=== PATIENT | male | born 1955 | race Caucasian/White ===

== ENCOUNTER 2017-11-04 06:06 | Observation (INO) | payer OTHER ==
[2017-11-04 08:08] VITALS: RESP 18
[2017-11-04] MEDS ORDERED: NITROGLYCERIN SL TABS 0.4 MG TAB SUBLINGUAL PRN (08:10)
--- NOTE | 2017-11-04 10:56 | ECHOF ---
Referral Reason:cp MEASUREMENTS -------- HEIGHT: 154.9 cm WEIGHT: 109.3 kg BP: 115/75 RVIDd: 3.3 cm (< 3.3) IVSd: 0.8 cm (0.6 - 1.1) LVIDd: 4.6 cm (3.9 - 5.3) LVPWd: 0.8 cm (0.6 - 1.1) IVSs: 1.2 cm LVIDs: 3.1 cm LVPWs: 1.1 cm LAESV Index (A-L): 17.54 ml/m Ao Diam: 2.8 cm (2.0 - 3.7) LA Diam: 2.9 cm (2.7 - 3.8) EPSS: 0.5 cm MV E Riaz: 0.66 m/s MV DecT: 251 ms MV A Riaz: 0.96 m/s MV E/A Ratio: 0.69 AV maxP.14 mmHg AV meanP.63 mmHg RAP: 5.00 mmHg RVSP: 15.63 mmHg MV EF SLOPE: 99.05 mm/s (70 - 150) MV EXCURSION: 2.10 cm (> 18.000) FINDINGS -------- Sinus rhythm. This was a technically good study. The left ventricular size is normal. Left ventricular wall thickness is normal. Overall left vent ricular systolic function is normal with, an EF between 55 - 60 %. The right ventricle is mildly enlarged. Normal LA size by volume 22+/-6 ml/m2. The right atrial size is normal. There is mild aortic valve sclerosis. Trace to mild aortic regurgitation. There is no evidence of aortic stenosis. The mitral valve leaflets are mildly thickened. Mild mitral regurgitation is present. Trace tricuspid regurgitation present. Right ventricular systolic pressure is normal at < 35 mmHg. The right ventricular systolic pressure, as measured by Doppler, is 15.63mmHg. The pulmonic valve was not well visualized. There is no pulmonic regurgitation present. The aortic root size is normal. Normal inferior vena cava with normal inspiratory collapse consistent with estimated right atrial pre ssure of 5 mmHg. There is no pericardial effusion. CONCLUSIONS -------- 1. Sinus rhythm. 2. This was a technically good study. 3. The left ventricular size is normal. 4. Left ventricular wall thickness is normal. 5. Overall left ventricular systolic function is normal with, an EF between 55 - 60 %. 6. The right ventricle is mildly enlarged. 7. Normal LA size by volume 22+/-6 ml/m2. 8. There is mild aortic valve sclerosis. 9. Trace to mild aortic regurgitation. 10. The mitral valve leaflets are mildly thickened. 11. Mild mitral regurgitation is present. 12. Trace tricuspid regurgitation present. 13. Right ventricular systolic pressure is normal at < 35 mmHg. 14. The pulmonic valve was not well visualized. 15. There is no pulmonic regurgitation present. 16. The aortic root size is normal. 17. There is no pericardial effusion. SKULL GRINDER: Jorge Nagel RDCS
[2017-11-04 11:03] LABS: Cholesterol 161 mg/dL (<200); HDL Cholesterol 39 mg/dL (40-60); LDL Cholesterol,Calculated 110 mg/dL (0-99); Triglycerides 60 mg/dL (<150)
--- NOTE | 2017-11-04 11:21 | P.CRDCN ---
History of Present Illness History of present illness: Mr. Caicedo is a pleasant 62-year-old male with no significant past medical history. He used to smoke, quit in 2003 after smoking for 30 years. He denies history of coronary artery disease, hypertension, dyslipidemia or diabetes mellitus. He states his father at the age of 46 from a heart attack. We have been asked to see him in consultation for chest pain. He states he woke up to use the restroom last night around 0300. He walked to the restroom without issue and urinated. Once getting back into bed he started feeling a heavy pain in the precordial region and became acutely diaphoretic. He denies radiation to the arm, back, neck or jaw. He denies associated shortness of breath, dizziness, palpitations, nausea or vomiting. He states he has never felt a pain like this in the past. The symptoms persisted so he went to [facility] for evaluation. He received nitroglycerin SL there and his pain started to subside. He was transferred here for further evaluation. Since arriving here his pain has completely resolved. EKG obtained initially in [place] revealed sinus mechanism with no acute ST or T-wave abnormalities. Repeat here this morning is the same. Chest xray obtained at [place] read as normal per documentation, no films to review. Laboratory data obtained at [place] reviewed, hemoglobin 13.8, platelets 160 , sodium 140, potassium 3.5, magnesium 1.8, creatinine 1.3, normal BMP and d- dimer 0.57. He takes no daily medications. Review of Systems At the time of my exam: CONSTITUTIONAL: Denies fever. Denies chills. EYES: Denies blurred vision. Denies vision changes. Denies eye pain. EARS, NOSE, MOUTH & THROAT: Denies headache. Denies sore throat. Denies ear pain. CARDIOVASCULAR: Denies chest pain. Denies shortness of breath. Denies orthopnea. Denies PND. Denies palpitations. RESPIRATORY: Denies cough. GASTROINTESTINAL: Denies abdominal pain. Denies diarrhea. Denies constipation. Denies nausea. Denies vomiting. MUSCULOSKELETAL: Denies myalgias. INTEGUMENTARY: Denies pruitis. Denies rash. NEUROLOGIC: Denies numbness. Denies tingling. Denies weakness. PSYCHIATRIC: Denies anxiety. Denies depression. ENDOCRINE: Denies fatigue. Denies weight change. Denies polydipsia. Denies polyurina. GENITOURINARY: Denies burning, hematuria or urgency with micturation. HEMATOLOGIC: Denies history of anemia. Denies bleeding. Past Medical History - Past Family History Father Family Medical History: Myocardial Infarction ([place]) Additional Family Medical History / Comment(s): Father at the age of 46yrs from a [facility] Mother Additional Family Medical History / Comment(s): Pt states his mother went into the hospital because she was having problems with her legs and . She was 83 yrs old. Medications and Allergies Home Medications Medication Instructions Recorded Confirmed Type Aspirin EC [Ecotrin Low Dose] 81 mg PO HS 11/04/17 11/04/17 History Calcium Carbonate [Calcium] 600 mg PO HS 11/04/17 11/04/17 History Multivitamins, Thera [Multivitamin 1 tab PO HS 11/04/17 11/04/17 History (formulary)] Allergies Allergy/AdvReac Type Severity Reaction Status Date / Time No Known Allergies Allergy Verified 11/04/17 09:04 Physical Exam Vitals: Vital Signs Temp Pulse Resp BP Pulse Ox 11/04/17 08:06 97.4 F L 80 18 115/75 100 Intake and Output 11/03/17 11/04/17 11/04/17 22:59 06:59 14:59 Other: Weight 109.4 kg Blood pressure 115/75 heart rate 88 afebrile maintaining oxygen saturation on nasal cannula GENERAL: This is a 62-year-old male in no apparent distress at the time of my examination. Obese. HEENT: Head is atraumatic, normocephalic. Pupils are equal, round. Sclerae anicteric. Conjunctivae are clear. Mucous membranes of the mouth are moist. Neck is supple. There is no jugular venous distention. No carotid bruit is heard. LUNGS: Clear to auscultation no wheezes, rales or rhonchi. No chest wall tenderness is noted on palpation or with deep breathing. HEART: Regular rate and rhythm without murmurs, rubs or gallops. S1 and S2 heard. ABDOMEN: Soft, nontender. Bowel sounds are heard. No organomegaly noted. EXTREMITIES: No evidence of peripheral edema and no calf tenderness noted. VASCULAR: Radial and dorsalis pedis pulses palpated, no evidence of clubbing. NEUROLOGIC: Patient is awake, alert and oriented x3. Results Intake and Output 11/03/17 11/04/17 11/04/17 22:59 06:59 14:59 Other: Weight 109.4 kg Patient Weight 11/05/17 06:59 Weight 109.4 kg Assessment and Plan Assessment: ASSESSMENT Chest pain, atypical. Resolved. Former nicotine dependence Family history of premature from cardiac causes PLAN Obtain 2D echocardiogram and doppler study to assess cardiac structure and function. Obtain second set of cardiac enzymes, if normal we can proceed with stress echocardiogram to assess for stress induced cardiac ischemia. Check lipid panel. Recommend lifestyle modifications for weight loss and increase exercise. Symptoms are very atypical, if stress test is normal he is stable from a cardiac perspective. Thank you kindly for this consultation. Nurse Practitioner note has been reviewed, I agree with a documented findings and plan of care. Patient was seen and examined.
[2017-11-04 12:19] VITALS: BP 127/81; PULSE 89; TEMP 97.6
--- NOTE | 2017-11-04 13:33 | P.HPIM ---
History of Present Illness 62-year-old pleasant man came in with complaints of chest pain was seen in [facility] was subsequently transferred here had an episode of chest pain which lasted for a few minutes and the left side of the chest sharp in nature nonradiating lasted for about an hour and and no associated diaphoresis or shortness of breath lightheadedness chest pain is nonpleuritic in nature. Resolved with sublingual nitroglycerin. Patient's EKG did not show any acute ST -T wave changes troponins are negative chest x-ray was essentially within normal limits and the creatinine is bit elevated beyond that there was no significant abnormality patient doesn't take any medications at home used to smoke in the past quit smoking. Patient is undergoing stress test if it's negative patient will be discharged today. Review of Systems REVIEW OF SYSTEMS: CONSTITUTIONAL: No fever, no malaise, no fatigue. HEENT: No recent visual problems or hearing problems. Denied any sore throat. CARDIOVASCULAR: No chest pain, orthopnea, PND, no palpitations, no syncope. PULMONARY: No shortness of breath, no cough, no hemoptysis. GASTROINTESTINAL: No diarrhea, no nausea, no vomiting, no abdominal pain. Normoactive bowel sounds. NEUROLOGICAL: No headaches, no weakness, no numbness. HEMATOLOGICAL: Denies any bleeding or petechiae. GENITOURINARY: Denies any burning micturition, frequency, or urgency. MUSCULOSKELETAL/RHEUMATOLOGICAL: Denies any joint pain, swelling, or any muscle pain. ENDOCRINE: Denies any polyuria or polydipsia. The rest of the 14-point review of systems is negative. Past Medical History Past Medical History: No Reported History History of Any Multi-Drug Resistant Organisms: None Reported Past Surgical History: Orthopedic Surgery Additional Past Surgical History / Comment(s): Bilateral ankle fractures/ dislocations with surgery-pt does not know if any hardware is present, colonoscopy Past Anesthesia/Blood Transfusion Reactions: No Reported Reaction Smoking Status: Former smoker - Past Family History Father Family Medical History: Myocardial Infarction ([place]) Additional Family Medical History / Comment(s): Father at the age of 46yrs from a [place] Mother Additional Family Medical History / Comment(s): Pt states his mother went into the hospital because she was having problems with her legs and . She was 83 yrs old. Medications and Allergies Home Medications Medication Instructions Recorded Confirmed Type Aspirin EC [Ecotrin Low Dose] 81 mg PO HS 11/04/17 11/04/17 History Calcium Carbonate [Calcium] 600 mg PO HS 11/04/17 11/04/17 History Multivitamins, Thera [Multivitamin 1 tab PO HS 11/04/17 11/04/17 History (formulary)] Allergies Allergy/AdvReac Type Severity Reaction Status Date / Time No Known Allergies Allergy Verified 11/04/17 09:04 Physical Exam Vitals: Vital Signs Temp Pulse Resp BP Pulse Ox 11/04/17 11:35 97.6 F 89 18 127/81 96 11/04/17 08:06 97.4 F L 80 18 115/75 100 Intake and Output 11/03/17 11/04/17 11/04/17 22:59 06:59 14:59 Other: Voiding Method Toilet Weight 109.316 kg PHYSICAL EXAMINATION: GENERAL: The patient is alert and oriented x3, not in any acute distress. Well developed, well nourished. HEENT: Pupils are round and equally reacting to light. EOMI. No scleral icterus. No conjunctival pallor. Normocephalic, atraumatic. No pharyngeal erythema. No thyromegaly. CARDIOVASCULAR: S1 and S2 present. No murmurs, rubs, or gallops. PULMONARY: Chest is clear to auscultation, no wheezing or crackles. ABDOMEN: Soft, nontender, nondistended, normoactive bowel sounds. No palpable organomegaly. MUSCULOSKELETAL: No joint swelling or deformity. EXTREMITIES: No cyanosis, clubbing, or pedal edema. NEUROLOGICAL: Gross neurological examination did not reveal any focal deficits. SKIN: No rashes. Results Labs: Abnormal Lab Results - Last 24 Hours (Table) 11/04/17 Range/Units 10:05 LDL Cholesterol, Calc 110 H (0-99) mg/dL HDL Cholesterol 39 L (40-60) mg/dL Thrombosis Risk Factor Assmnt - Choose All That Apply Any of the Below Risk Factors Present?: Yes Each Factor Represents 1 point: Age 41-60 years, Obesity (BMI >25) Other Risk Factors: No Other congenital or acquired thrombophilia - If yes, enter type in comment: No Thrombosis Risk Factor Assessment Total Risk Factor Score: 2 Thrombosis Risk Factor Assessment Level: Low Risk Assessment and Plan Plan: -Chest pain: Rule out acute coronary syndromes patient will undergo stress test if that's negative patient will be discharged. -Nicotine use in the past. -Renal failure: Probably acute patient was asked to drink lots of water and follow-up with primary care physician repeat basic metabolic profile as an outpatient.
--- NOTE | 2017-11-04 13:35 | ECHOS ---
STRESS ECHOCARDIOGRAM DATE OF SERVICE: 11/04/2017 INDICATIONS: Chest pain. MEDICATIONS: BASELINE HEART RATE: 86 BASELINE BLOOD PRESSURE: 105/58 MAXIMUM HEART RATE: 153 MAXIMUM BLOOD PRESSURE: 152/59 85% MPHR: 136 100% MPHR: 160 METS: 8.5 MAXIMUM STAGE REACHED: III TOTAL EXERCISE TIME: 7 minutes CLINICAL INFORMATION: Baseline rhythm sinus mechanism, rate of 86, normal axis and intervals, normal electrocardiogram. Baseline blood pressure 105/58 mmHg. Patient exercised on Bowen protocol for 7 minute reaching peak rate 153 beats per minute which is equal to 96% maximum predicted heart rate. Peak blood pressure 152/59 mmHg. Test was terminated secondary to fatigue. There is no chest pain. Electrocardiograph monitoring revealed no evidence of diagnostic ischemic ST deviation. Baseline echocardiogram revealed normal wall thickening and motion. At peak exercise there was normal wall motion augmentation with no hypokinesis or dyskinesis. CONCLUSION: 1. Average exercise tolerance with normal electrocardiograph response to exercise. 2. Normal stress echocardiogram with no evidence of stress induced ischemia. MMODL / IJN: [id number] /
== END 2017-11-04 16:05 | disposition home or self-care (01) ==
LOC: 3OBS 07:43
PROVIDERS: ADMIT Internal Medicine; ATTEND Internal Medicine
DX: R07.89 Other chest pain (principal); R61 Generalized hyperhidrosis; N19 Unspecified kidney failure; E66.9 Obesity, unspecified; Z68.33 Body mass index [BMI] 33.0-33.9, adult; Z79.82 Long term (current) use of aspirin; Z87.891 Personal history of nicotine dependence; Z82.49 Family history of ischemic heart disease and other diseases of the circulatory system
CPT/HCPCS: 93306; 93351; 80061; 84484; G0378; G0379